=== PATIENT | female | born 1955 | race Caucasian/White ===

== ENCOUNTER → 2023-03-01 | Outpatient (CLI) | payer MEDICARE ==
--- NOTE | 2023-03-06 15:38 | MM ---
Reason for Exam: Screening (asymptomatic). Last mammogram was performed 1 year(s) and 7 month(s) ago. Patient History: Menarche at age 10. First Full-Term at age 16. Left ovary removed at age 25. Hysterectomy at age 25. Postmenopausal. Patient has history of breast feeding. Maternal aunt had breast cancer, age 65. Risk Values: Vanessa 5 year model risk: 1.4%. NCI Lifetime model risk: 4.4%. Prior Study Comparison: 08/03/2021 Bilateral Screening Mammogram, Unknown. Tissue Density: There are scattered fibroglandular densities. Findings: Analyzed By CAD. Unchanged intramammary lymph nodes laterally, one on either side. There is no suspicious group of microcalcifications or new suspicious mass in either breast. Overall Assessment: Benign, BI-RAD 2 Management: Screening Mammogram of both breasts in 1 year. . Patient should continue monthly self-breast exams. A clinical breast exam by your physician is recommended on an annual basis. This exam should not preclude additional follow-up of suspicious palpable abnormalities. Note on Vanessa scores and lifetime risk: 1. A Vanessa score greater than 3% is considered moderate risk. If this is the case, consider specialist referral to assess eligibility for a risk reducing agent. 2. If overall lifetime risk for the development of breast cancer is 20% or higher, the patient may qualify for future screening with alternating mammogram and breast MRI. Electronically signed and approved by: Shakira Gupta M.D. Radiologist
== END | disposition home or self-care (01) ==
LOC: RADMAMWWP 09:47
PROVIDERS: ATTEND Family Medicine
DX: Z12.31 Encounter for screening mammogram for malignant neoplasm of breast (principal); Z78.0 Asymptomatic menopausal state; Z80.3 Family history of malignant neoplasm of breast
CPT/HCPCS: 77063; 77067

== ENCOUNTER → 2024-03-11 | Day surgery (SDC) | payer MEDICARE ==
[~2024-03-11] MED LIST: ALPRAZolam 0.25 MG TAB PO PRN
[2024-03-11] MEDS: EMPTY BAG 1 BAG with SODIUM CHLORIDE 0.9% 1,000 ML IV SCH (12:16)
[2024-03-11] MEDS: IV FLUID CONTINUATION 1,000 ML IV ONE (12:16)
[2024-03-11 12:40] LABS: Basophils # (A) 0.1 k/uL (0-0.2); Basophils % (A) 1 %; Eosinophils # (A) 0.1 k/uL (0-0.7); Eosinophils % (A) 2 %; HCT 43.1 % (34.0-46.0); HGB 14.4 gm/dL (11.4-16.0); Lymphocytes # (A) 2.6 k/uL (1.0-4.8); Lymphocytes % (A) 32 %; MCH 34.2 pg (25.0-35.0); MCHC 33.5 g/dL (31.0-37.0); MCV 102.1 fL (80.0-100.0); Mean Platelet Volume 7.8; Monocytes # (A) 0.5 k/uL (0-1.0); Monocytes % (A) 6 %; Neutrophils # (A) 4.7 k/uL (1.3-7.7); Neutrophils % (A) 58 %; Platelet Count 270 k/uL (150-450); RBC 4.22 m/uL (3.80-5.40); RDW 11.7 % (11.5-15.5)
[2024-03-11 12:43] VITALS: TEMP 98.2
[2024-03-11 13:02] LABS: African American GFR (CKD) 66 (>60 ml/min/1.73 sqM); Anion Gap 6 mmol/L; Blood Urea Nitrogen 17 mg/dL (7-17); Calcium 9.6 mg/dL (8.4-10.2); Carbon Dioxide 26 mmol/L (22-30); Chloride 105 mmol/L (98-107); Glucose 101 mg/dL (74-99); Non-African American GFR(CKD) 57 (>60 ml/min/1.73 sqM); Potassium 4.5 mmol/L (3.5-5.1); Sodium 137 mmol/L (137-145)
[2024-03-11] MEDS: MIDAZOLAM 2 MG/2 ML VIAL IVP ONE (13:32)
[2024-03-11] MEDS: fentaNYL (PF) 50 MCG/ML 2 ML AMP IVP ONE (13:32)
[2024-03-11] MEDS: LIDOCAINE 1% INJ 10MG/ML (20 ML MDV) SQ ONE (13:35)
[2024-03-11] MEDS: HEPARIN SODIUM,PORCINE 10,000 UNIT in SODIUM CHLORIDE 0.9% 1,000 ML IRRIGATION ONE (13:47)
[2024-03-11] MEDS: IOPAMIDOL-250 100ML BTL INTRAARTER ONE (13:52)
--- NOTE | 2024-03-11 13:57 | P.OP ---
Date of Procedure: 03/11/24 Description of Procedure: Preoperative diagnosis: Disabling claudication, [place] classification 3 Postop diagnosis: Same, patent aortobiiliac graft, bilateral external iliac artery calcific disease, right SFA occlusive disease. One-vessel runoff bilaterally Procedure: Aortogram with bilateral lower extremity runoffs via left radial artery access under ultrasound guidance Surgeon: Janis Anesthesia: Moderate sedation times 16 minutes Estimated blood loss: Less than 5 cc Complications: None Condition: Stable Findings: Aorta: Patent aortobiiliac stent graft without any evidence of stenosis Iliacs: Bilateral common iliac, external iliac arteries with atherosclerotic disease without any evidence of severe stenosis. Internal iliac arteries bilaterally are patent with atherosclerotic disease throughout Femorals: Bilateral femoral arteries are patent, profundus femoris is patent without any significant stenosis. Right SFA severe stenosis of the takeoff greater than 90% with multiple areas of stenosis throughout extending to the midportion where it is occluded and reconstitution noted at the distal SFA proximal popliteal artery. Left SFA atherosclerotic disease noted throughout without any severe stenosis or occlusion. Popliteal: Bilateral popliteal arteries are patent but difficult to discern on the right due to timing of contrast and SFA occlusion. Tibials: Bilateral tibial peroneal trunk with severe atherosclerotic disease. One-vessel runoff to bilateral ankles via the anterior tibial arteries Operative narrative: After written informed consent was obtained the patient all risks benefits competitions were described the patient is brought to the Gaming Manager and laid in a supine position. The area of the left wrist was prepped and draped in the usual sterile fashion. Local anesthesia with moderate sedation was performed with continuous pulse ox monitoring and EKG monitoring. Utilizing ultrasound the left radial artery was visualized and shown to be patent without any significant plaque. Utilizing a multipurpose needle under ultrasound guidance the artery was accessed. Guidewire was placed followed by 5 [place]uvian sheath. 035 Glidewire was then placed into the aorta followed by pigtail catheter. Angiogram was then obtained of the aorta. Catheter was then placed at the bifurcation and lower extremity runoffs were obtained. Once completed all guidewires, catheters and sheaths were removed and pressure was placed for hemostasis. Patient tolerated procedure well was sent to PACU for recovery
--- NOTE | 2024-03-11 14:14 | IR ---
EXAMINATION TYPE: IR angio abdominal w runoff DATE OF EXAM: 03/11/2024 FLUOROSCOPY right leg pain, 1.8min fluoro, 26.3Gycm2, 263 images are submitted. [facility], Workstation: [employer], 03/11/2024 2:11 PM
[2024-03-11 20:31] VITALS: RESP 16
[2024-03-11 20:35] VITALS: BP 175/71; PULSE 50
== END | disposition home or self-care (01) ==
LOC: CATHCVL 11:44
PROVIDERS: ATTEND Surgery
DX: I73.9 Peripheral vascular disease, unspecified (principal)
CPT/HCPCS: 36200; 75625; 75716; 76937; 80048; 85025; C1769 ×2; C1894; J2250; J1644; J2003; J3010; Q9966

== ENCOUNTER 2024-05-10 08:57 | Inpatient (IN) | payer MEDICARE ==
[~2024-05-10 08:57] MED LIST changes: -ALPRAZolam 0.25 MG TAB PO PRN; +MIDAZOLAM 2 MG/2 ML VIAL IV PRN
[2024-05-10] MEDS: LACTATED RINGERS 1,000 ML IV ONE ×3 (09:49→15:58)
[2024-05-10] MEDS: DEXAMETHASONE SOD PHOSPHATE 4 MG/ML 1 ML VIAL IV ONE (09:58)
[2024-05-10] MEDS: ONDANSETRON 4 MG/2 ML VIAL IVP ONE (09:58)
[2024-05-10] MEDS: HEPARIN SODIUM,PORCINE 10,000 UNIT in SODIUM CHLORIDE 0.9% 1,000 ML IRRIGATION ONE ×2 (11:01→13:58)
[2024-05-10] MEDS: ceFAZolin 2 GM in SODIUM CHLORIDE 0.9% 500 ML 500 ML IRRIGATION ONE (11:04)
[2024-05-10] MEDS: IOPAMIDOL-370 100ML BTL IVP ONE ×2 (12:45→13:31)
--- NOTE | 2024-05-10 13:30 | P.ANPRN ---
Procedure Note - Anesthesia - Invasive Line Right Arterial Line Time Out Performed: Yes (1006) Date of Procedure: 05/10/24 Time of Procedure: 10:07 Location of Patient: PreOp Preparation: Sterile Prep, Sterile Dressing Arterial Line Location: Radial (right) Ultrasound Used: Yes Purpose - Visualization and Identification of Vasculature: Yes Needle Guage: 20g Image Stored and Saved: Yes Narrative: Invasive line placement per sterile protocol utilized. attemptx1. Sterile protocol. bled and flushed and secured and dressed.
[2024-05-10] MEDS: THROMBIN (BOVINE) 5,000 UNIT VIAL TOPICAL ONE (13:55)
--- NOTE | 2024-05-10 14:27 | FL ---
EXAMINATION TYPE: FL guidance operating room DATE OF EXAM: 05/10/2024 CLINICAL INDICATION: Female, 68 years old with history of ATHEROSCLEROSIS, TECHNIQUE: Fluoroscopy. COMPARISON: None. FINDINGS: Fluoroscopic guidance was provided during angiogram with balloon angioplasty and stenting procedure performed by Dr. Bruce. A total of 12 minutes 48 seconds of fluoroscopic time was utiliz ed during the procedure and 1710 spot images was acquired. Total DAP = 40.067 Gy cm2. IMPRESSION: As Above. [facility], , 05/10/2024 2:24 PM
[2024-05-10] MEDS: HYDROmorphone 0.5 MG/0.5 ML SYRINGE IVP PRN (15:00)
--- NOTE | 2024-05-10 15:12 | P.OP ---
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 Postoperative Diagnosis: Same Procedure(s) Performed: Right common femoral, superficial femoral, profundus femoris artery endarterectomy and patch angioplasty Selective right lower extremity angiogram second order Transluminal balloon angioplasty of the superficial femoral artery Transluminal covered stent placement of the right superficial femoral artery Anesthesia: GETA Surgeon: Huy Bruce Estimated Blood Loss (ml): 50 Pathology: other (Femoral plaque) Condition: stable Disposition: PACU Indications for Procedure: 68-year-old female with history of severe disabling claudication [place] classification 3 who underwent aortogram with runoff that demonstrated severe occlusive disease of the right common femoral artery as well as the SFA with chronic total occlusion noted at the proximal and midportion of the SFA with reconstitution of the popliteal artery. She presents today hospital for el ective common femoral endarterectomy and patch angioplasty with possible revascularization of the right lower extremity SFA. Operative Findings: Dense calcification and plaque with greater than 90% stenosis of the common femoral and distal external iliac artery with chronic total occlusion of the SFA at the proximal and midportion of the SFA with reconstitution above-knee popliteal artery with one-vessel runoff to the foot. Description of Procedure: After written and informed consent was obtained from the patient all risks benefits and competitions were described the patient is brought to the operative suite and laid in a supine position. The area of the abdomen, right lower extremity was prepped and draped in usual sterile fashion after appropriate anesthetic was performed per the anesthesiologist. A timeout was performed in normal fashion. Antibiotics were administered prior to incision. A oblique incision was created at the right groin and dissection was carried down to the common femoral artery. The common femoral, superficial femoral and profundus femoris arteries were dissected free in a circumferential manner and controlled with vessel loops. Patient was administered heparin and followed with ACT's for appropriate heparinization above 200. All vessels were then clamped with vascular clamps and arteriotomy was created with 11 blade scalpel at the SFA extending into the common femoral artery with Blanc Metzenbaums scissors. Dense calcified plaque was encountered and endarterectomy was then performed with a [place] elevator from the external iliac artery to the SFA with attempt at feathering the distal aspect of the plaque. Eversion endarterectomy was performed of the profundus. Once completed control was released revealing good blood flow proximally that was pulsatile and good backbleeding from the SFA and profundus. All free debris was removed. Patch angioplasty was then performed with a 9 x 2 mm bovine pericardial patch with a 6-0 Prolene suture in a running fashion. Once completed control was released revealing good pulsatile blood flow through the patch and to the SFA. Due to the previous imaging that demonstrated occlusion of the SFA the patch was accessed with a multipurpose needle and a 4 Danish sheath was placed and angiogram was obtained demonstrating occlusion of the SFA at the proximal aspect as well as in the midportion with reconstitution above-knee. Due to this a 7 Danish sheath was then guided over a guidewire in an antegrade fashion and utilizing 035 Glidewire and quick cross catheter the lesions were crossed. Once across the lesion at distal angiogram was obtained demonstrating good intraluminal access. One-vessel runoff was noted to the foot which was the dorsalis pedis. Balloon angioplasty was then performed with a 5 x 80 mm balloon multiple times throughout the SFA. 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 Due to the fistula covered stent was chosen to be placed in a 6 x 250 mm Viabahn stent was placed across the lesion from just distal to Siddharth's canal and extending up towards the SFA takeoff. Another covered stent needed to be placed to fully extend above the lesion and therefore a 50 mm Viabahn stent was placed. Balloon angioplasty of these areas was then performed and final angiogram demonstrated brisk flow through the SFA to the popliteal with one- vessel runoff to the foot with complete resolution of the occlusion. Sheath was then removed and closed with 6-0 Prolene suture. The area was then copiously irrigated with antibiotic solution and hemostasis was ensured with Gelfoam and thrombin. The area was then irrigated and closed in a multilayer fashion with 3-0 Vicryl for the deep tissue, 3-0 Vicryl for the subcu and 4-0 running Monocryl for the skin. The area was then cleansed and Prevena dressing was then placed in normal fashion. Patient tolerated seizure well had a palpable DP pulse at the conclusion of the procedure and was sent to PACU for recovery.
[2024-05-10] MEDS: LACTATED RINGERS 1,000 ML IV SCH (16:31)
[2024-05-10] MEDS: METOPROLOL SUCCINATE (ER) 50 MG TAB.ER.24H PO SCH (20:14)
[2024-05-10] MEDS: amLODIPine 5 MG TAB PO SCH (20:14)
[2024-05-11] MEDS: FORMOTEROL FUMARATE 20 MCG/2 ML NEBU INHALATION SCH (07:53)
[2024-05-11] MEDS: TIOTROPIUM 2.5 MCG INHALER INHALATION SCH (07:53)
[2024-05-11] MEDS ORDERED: NON FORMULARY DRUG (Potassium Citrate [Potassium Citrate] 99 MG Capsule) PO SCH (09:00)
[2024-05-11] MEDS ORDERED: NON FORMULARY DRUG (Omega-3/Dha/Epa/Fish Oil [Fish Oil 1,000 Mg Softgel] 1 EACH Capsule) PO SCH (09:00)
[2024-05-11] MEDS ORDERED: NON FORMULARY DRUG (Ubidecarenone [Co Q-10] 300 MG Capsule) PO SCH (09:00)
[2024-05-11] MEDS ORDERED: NON FORMULARY DRUG (Alpha Lipoic Acid [Alpha Lipoic Acid] 600 MG Tablet) PO SCH (09:00)
[2024-05-11] MEDS: CLOPIDOGREL 75 MG TAB PO SCH (09:12)
[2024-05-11] MEDS: VITAMIN E (DL,TOCOPHERYL ACET) 400 UNIT (180 MG) CAP PO SCH (09:12)
[2024-05-11] MEDS: MAGNESIUM OXIDE 400 MG TAB PO SCH (09:12)
[2024-05-11] MEDS: CYANOCOBALAMIN 500 MCG TAB PO SCH (09:12)
[2024-05-11] MEDS: ASPIRIN 81 MG PO SCH (09:12)
[2024-05-11] MEDS: LOSARTAN 50 MG TAB PO SCH (09:13)
[2024-05-11] MEDS: ATORVASTATIN 40 MG TAB PO SCH (09:13)
[2024-05-11] MEDS: FENOFIBRATE 160 MG TAB PO SCH (09:13)
[2024-05-11] MEDS: CHOLECALCIFEROL 25 MCG (1000 IU) TABLET PO SCH (09:13)
[2024-05-11 11:59] VITALS: BP 141/65; PULSE 58; RESP 17; TEMP 97.9
--- NOTE | 2024-05-11 12:31 | P.DS ---
Providers Date of admission: 05/10/24 08:57 Expected date of discharge: 05/11/24 Attending physician: Huy Bruce DO Primary care physician: Jj Timmy [facility] Course: Patient underwent right common femoral thromboendarterectomy with patch angioplasty and balloon dilation and stent placement of the right superficial femoral artery. She tolerated these procedures well. Assessment: Satisfactory progress status post right lower extremity revascularization. On the date of discharge the patient was sitting in in the chair and anxious for dismissal. She indicates that her right lower extremity felt "much warmer ". She indicated she had full range of motion of her hip knee ankle and foot joints and that she has been ambulatory without issue. Patient Condition at Discharge: Good Plan - Discharge Summary Discharge Rx Participant: No New Discharge Prescriptions: No Action Fenofibrate 160 mg PO DAILY Losartan Potassium 100 mg PO DAILY Metoprolol Succinate (ER) [Toprol Xl] 50 mg PO BID Ubidecarenone [Co Q-10] 100 mg PO DAILY Cyanocobalamin (Vitamin B-12) [Vitamin B-12] 5,000 mcg PO DAILY Anoro Inhaler(Unknown Dose) 1 puff INHALATION DAILY Vitamin E (Dl,Tocopheryl Acet) [Vitamin E (400 Iu = 180 mg)] 400 unit PO DAILY [place]-3/Dha/Epa/Fish Oil [Fish Oil 1,000 mg Softgel] 1,000 mg PO DAILY amLODIPine [Norvasc] 5 mg PO HS Aspirin 81 mg PO HS Cholecalciferol (Vitamin D3) [Vitamin D3 (50 Mcg = 2000 Iu)] 50 mcg PO DAILY Potassium Citrate 99 mg PO DAILY Albuterol Inhaler [Ventolin Hfa Inhaler] 1 - 2 puff INHALATION Q6H PRN PRN Reason: Shortness Of Breath Magnesium 420 mg PO DAILY Alpha Lipoic Acid 600 mg PO DAILY Discharge Medication List Albuterol Inhaler [Ventolin Hfa Inhaler] 1 - 2 puff INHALATION Q6H PRN 03/05/24 [History] Aspirin 81 mg PO HS 03/05/24 [History] Cholecalciferol (Vitamin D3) [Vitamin D3 (50 Mcg = 2000 Iu)] 50 mcg PO DAILY 03/05/24 [History] Cyanocobalamin (Vitamin B-12) [Vitamin B-12] 5,000 mcg PO DAILY 03/05/24 [History] Fenofibrate 160 mg PO DAILY 03/05/24 [History] Losartan Potassium 100 mg PO DAILY 03/05/24 [History] Magnesium 420 mg PO DAILY 03/05/24 [History] Metoprolol Succinate (ER) [Toprol Xl] 50 mg PO BID 03/05/24 [History] [place]-3/Dha/Epa/Fish Oil [Fish Oil 1,000 mg Softgel] 1,000 mg PO DAILY 03/05/24 [History] Potassium Citrate 99 mg PO DAILY 03/05/24 [History] Ubidecarenone [Co Q-10] 100 mg PO DAILY 03/05/24 [History] amLODIPine [Norvasc] 5 mg PO HS 03/05/24 [History] Anoro Inhaler(Unknown Dose) 1 puff INHALATION DAILY 05/08/24 [History] Alpha Lipoic Acid 600 mg PO DAILY 05/09/24 [History] Vitamin E (Dl,Tocopheryl Acet) [Vitamin E (400 Iu = 180 mg)] 400 unit PO DAILY 05/09/24 [History] Follow up Appointment(s)/Referral(s): Huy Bruce DO [STAFF PHYSICIAN] - 1 Week Activity/Diet/Wound Care/Special Instructions: May resume usual diet. Recommended to the patient she follow a high-fiber/low-fat diet. Please leave wound VAC in place for 6 to 7 days. Then remove wound VAC after the 6 to 7-day timeframe. No ambulatory restrictions imposed from a vascular surgical standpoint. Avoid any and all tobacco smoke exposure including secondhand smoke. Discharge Disposition: HOME SELF-CARE
[2024-05-11] MEDS ORDERED: ASPIRIN 81 MG PO SCH (21:00)
== END 2024-05-11 13:34 | disposition home or self-care (01) | DRG 271 ==
LOC: 2ORMAIN 08:57 → 3SCARD 15:23
PROVIDERS: ADMIT Surgery; ATTEND Surgery
PROC: 04CK3ZZ Extirpation of Matter from Right Femoral Artery, Percutaneous Approach (ICD-10-PCS; 2024-05-10)
PROC: 04UK3JZ Supplement Right Femoral Artery with Synthetic Substitute, Percutaneous Approach (ICD-10-PCS; 2024-05-10)
PROC: B41F1ZZ Fluoroscopy of Right Lower Extremity Arteries using Low Osmolar Contrast (ICD-10-PCS; 2024-05-10)
PROC: 03HY32Z Insertion of Monitoring Device into Upper Artery, Percutaneous Approach (ICD-10-PCS; 2024-05-10)
PROC: 4A133B1 Monitoring of Arterial Pressure, Peripheral, Percutaneous Approach (ICD-10-PCS; 2024-05-10)
PROC: 4A133J1 Monitoring of Arterial Pulse, Peripheral, Percutaneous Approach (ICD-10-PCS; 2024-05-10)
PROC: 047K3DZ Dilation of Right Femoral Artery with Intraluminal Device, Percutaneous Approach (ICD-10-PCS; principal; 2024-05-10 12:00)
DX: I70.213 Atherosclerosis of native arteries of extremities with intermittent claudication, bilateral legs (principal); I70.92 Chronic total occlusion of artery of the extremities; G62.9 Polyneuropathy, unspecified; I70.8 Atherosclerosis of other arteries; I70.201 Unspecified atherosclerosis of native arteries of extremities, right leg; I77.1 Stricture of artery; I71.40 Abdominal aortic aneurysm, without rupture, unspecified; Z88.1 Allergy status to other antibiotic agents
CPT/HCPCS: 86850; 86900; 86901

== ENCOUNTER 2024-05-18 10:18 | Emergency (ER) | payer MEDICARE ==
[2024-05-18 10:34] VITALS: RESP 16
--- NOTE | 2024-05-18 11:02 | ED ---
Recheck HPI - General Chief Complaint: Recheck/Abnormal Lab/Rx Stated Complaint: wound care Time Seen by Provider: 05/18/24 10:37 Source: patient, family, RN notes reviewed Mode of arrival: ambulatory Limitations: no limitations - History of Present Illness Initial Comments: 68-year-old female presents emergency department for wound care. Patient had re cent femoral artery stent placement of the right lower extremity on 05/10/[address] Bruce. She states that she was supposed to have wound care scheduled to come to her house however her insurance did not authorize this and has not had follow-up. Is scheduled for follow-up this upcoming Monday. Patient is concerned as she was post to have wound VAC removed 6 days after the procedure. She denies fevers, chills, nausea, vomiting. - Related Data Home Medications Medication Instructions Recorded Confirmed Albuterol Inhaler [Ventolin Hfa 1 - 2 puff INHALATION Q6H PRN 03/05/24 05/10/24 Inhaler] Aspirin 81 mg PO HS 03/05/24 05/10/24 Cholecalciferol (Vitamin D3) 50 mcg PO DAILY 03/05/24 05/10/24 [Vitamin D3 (50 Mcg = 2000 Iu)] Cyanocobalamin (Vitamin B-12) 5,000 mcg PO DAILY 03/05/24 05/10/24 [Vitamin B-12] Fenofibrate 160 mg PO DAILY 03/05/24 05/10/24 Losartan Potassium 100 mg PO DAILY 03/05/24 05/10/24 Magnesium 420 mg PO DAILY 03/05/24 05/10/24 Metoprolol Succinate (ER) [Toprol 50 mg PO BID 03/05/24 05/10/24 Xl] [place]-3/Dha/Epa/Fish Oil [Fish Oil 1,000 mg PO DAILY 03/05/24 05/10/24 1,000 mg Softgel] Potassium Citrate 99 mg PO DAILY 03/05/24 05/10/24 Ubidecarenone [Co Q-10] 100 mg PO DAILY 03/05/24 05/10/24 amLODIPine [Norvasc] 5 mg PO HS 03/05/24 05/10/24 Anoro Inhaler(Unknown Dose) 1 puff INHALATION DAILY 05/08/24 05/10/24 Alpha Lipoic Acid 600 mg PO DAILY 05/09/24 05/10/24 Vitamin E (Dl,Tocopheryl Acet) 400 unit PO DAILY 05/09/24 05/10/24 [Vitamin E (400 Iu = 180 mg)] Previous Rx's Medication Instructions Recorded Clopidogrel [Plavix] 75 mg PO DAILY #0 tablet 05/11/24 Allergies Allergy/AdvReac Type Severity Reaction Status Date / Time azithromycin AdvReac yeast Verified 05/10/24 09:26 infection Review of Systems ROS Statement: Those systems with pertinent positive or pertinent negative responses have been documented in the HPI. ROS Other: All systems not noted in ROS Statement are negative. Past Medical History Past Medical History: COPD, Hyperlipidemia, Hypertension, Osteoarthritis (OA), Vascular Disorder Additional Past Medical History / Comment(s): heart murmur. 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 cataracts removed 2020, recent aortogram. fem bypass right Past Anesthesia/Blood Transfusion Reactions: Previous Problems w/ Anesthesia Additional Past Anesthesia/Blood Transfusion Reaction / Comment(s): had an issue w/elevated BP w/2nd cataract surgery but no issues since that she knows of Past Psychological History: No Psychological Hx Reported Smoking Status: Current every day smoker - Past Family History Mother Family Medical History: Cancer Additional Family Medical History / Comment(s): cervical and lung Father Family Medical History: Diabetes Mellitus General Exam Limitations: no limitations General appearance: alert, in no apparent distress Neck exam: Present: normal inspection. Absent: tenderness, meningismus, lymphadenopathy Respiratory exam: Present: normal lung sounds bilaterally. Absent: respiratory distress, wheezes, rales, rhonchi, stridor Cardiovascular Exam: Present: regular rate, normal rhythm, normal heart sounds. Absent: systolic murmur, diastolic murmur, rubs, gallop, clicks GI/Abdominal exam: Present: soft, normal bowel sounds. Absent: distended, tenderness, guarding, rebound, rigid Extremities exam: Present: normal inspection, full ROM, normal capillary refill, other (right groin wound-vac after vascular procedure, no overlying erythema and non-tender). Absent: tenderness, pedal edema, joint swelling, calf tenderness Right Neurovascular tendon exam: Present: no vascular compromise. Absent: pulse deficit Back exam: Present: normal inspection Course Vital Signs 05/18/24 05/18/24 10:31 11:19 Temperature 97.8 F 98 F Pulse Rate 72 70 Respiratory 16 16 Rate Blood Pressure 149/56 144/72 O2 Sat by Pulse 100 100 Oximetry Medical Decision Making - Medical Decision Making Was pt. sent in by a medical professional or institution (, JU[facility], [employer], urgent care, hospital, or fdc...) When possible be specific @ -No Did you speak to anyone other than the patient for history (EMS, parent, family, police, friend...)? What history was obtained from this source @ -No Did you review nursing and triage notes (agree or disagree)? Why? @ -I reviewed and agree with nursing and triage notes Were old charts reviewed (outside hosp., previous admission, EMS record, old EKG, old radiological studies, urgent care reports/EKG's, fdc records)? Report findings @ -No old charts were reviewed Differential Diagnosis (chest pain, altered mental status, abdominal pain women, abdominal pain men, vaginal bleeding, weakness, fever, dyspnea, syncope, headache, dizziness, GI bleed, back pain, seizure, CVA, palpatations, mental health, musculoskeletal)? @ -Encounter for wound care EKG interpreted by me (3pts min.). @ -None X-rays interpreted by me (1pt min.). @ -None done CT interpreted by me (1pt min.). @ -None done U/S interpreted by me (1pt. min.). @ -None done What testing was considered but not performed or refused? (CT, X-rays, U/S, labs)? Why? @ -None What meds were considered but not given or refused? Why? @ -None Did you discuss the management of the patient with other professionals (professionals i.e. JUHI Tate, [employer], lab, RT, psych nurse, transition social worker, renewals specialist, teacher, fare enforcement officer, oil field caser)? Give summary @ -spoke with vascular specialist- Dr. Bruce, in regard to the patient's presentation. It is recommended that wound VAC be removed and patient to follow-up as scheduled in office on Monday. Was smoking cessation discussed for >3mins.? @ -No Was critical care preformed (if so, how long)? @ -No Were there social determinants of health that impacted care today? How? (Homelessness, low income, unemployed, alcoholism, drug addiction, transportation, low edu. Level, literacy, decrease access to med. care, retirement, rehab)? @ -No Was there de-escalation of care discussed even if they declined (Discuss DNR or withdrawal of care, Hospice)? DNR status @ -No What co-morbidities impacted this encounter? (DM, HTN, Smoking, COPD, CAD, Cancer, CVA, ARF, Chemo, Hep., AIDS, mental health diagnosis, sleep apnea, morbid obesity)? @ -None Was patient admitted / discharged? Hospital course, mention meds given and route, prescriptions, significant lab abnormalities, going to OR and other pertinent info. @ -Discharge. 68-year-old female presenting for wound care. Discussed with vascular specialist who recommends removal of wound VAC and follow-up outpatient on Monday. Successful removal with no complications. Case discussed with Dr. Sousa Undiagnosed new problem with uncertain prognosis? @ -No Drug Therapy requiring intensive monitoring for toxicity (Heparin, Nitro, Insulin, Cardizem)? @ -No Were any procedures done? @ -No Diagnosis/symptom? @ -encounter for wound care post femoral artery stent Acute, or Chronic, or Acute on Chronic? @ -acute Uncomplicated (without systemic symptoms) or Complicated (systemic symptoms)? @ -uncomplicated Side effects of treatment? @ -No Exacerbation, Progression, or Severe Exacerbation? @ -No Poses a threat to life or bodily function? How? (Chest pain, [place], [place], pneumonia, PE, COPD, DKA, ARF, appy, cholecystitis, CVA, Diverticulitis, Homicidal, Suicidal, threat to staff... and all critical care pts) @ -No Disposition Clinical Impression: Encounter for wound care Disposition: HOME SELF-CARE Condition: Good Is patient prescribed a controlled substance at d/c from ED?: No Referrals: Jj Warner DO [Primary Care Provider] - 1-2 days Time of Disposition: 11:01
[2024-05-18 11:20] VITALS: BP 144/72; PULSE 70; TEMP 98
== END 2024-05-18 11:19 | disposition home or self-care (01) ==
LOC: EC 10:18
DX: Z48.01 Encounter for change or removal of surgical wound dressing (principal); F17.200 Nicotine dependence, unspecified, uncomplicated; Z88.1 Allergy status to other antibiotic agents
CPT/HCPCS: 99282